=== PATIENT | female | born 2000 | race Caucasian/White ===

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

== ENCOUNTER 2023-10-20 08:54 | Emergency (ER) | payer MEDICAID, OTHER ==
[~2023-10-20] VITALS: Ht 167.6 cm; Wt 100.0 kg
[~2023-10-20 08:54] MED LIST changes: -ONDA4 PO; +PREN1TAB80 PO
[2023-10-20 09:37] VITALS: BP 107/66; PULSE 86; RESP 15; TEMP 99.2
== END 2023-10-20 09:51 | disposition left against medical advice (07) ==
LOC: EMS 08:54
DX: F15.90 Other stimulant use, unspecified, uncomplicated (principal); F17.210 Nicotine dependence, cigarettes, uncomplicated
CPT/HCPCS: 99281; Z7502